=== PATIENT | male | born 1985 | race Caucasian/White ===

== ENCOUNTER → 2024-05-18 | Outpatient (CLI) | payer BC ==
[2024-05-18 19:23] LABS: Basophils # (A) 0.06 X 10*3/uL (0.00-0.10); Basophils % (A) 0.8 %; Eosinophils # (A) 0.28 X 10*3/uL (0.04-0.35); Eosinophils % (A) 3.9 %; HCT 44.6 % (39.6-50.0); HGB 15.5 g/dL (13.0-17.0); Lymphocytes # (A) 2.08 X 10*3/uL (0.90-5.00); Lymphocytes % (A) 29.2 %; MCH 31.2 pg (27.0-32.0); MCHC 34.8 g/dL (32.0-37.0); MCV 89.7 FL (80.0-97.0); Mean Platelet Volume 10.8 FL (9.5-12.2); Monocytes # (A) 0.42 X 10*3/uL (0.20-1.00); Monocytes % (A) 5.9 %; NRBC Per 100 WBC 0 X 10*3/uL (0.00-0.01); Neutrophils # (A) 4.24 X 10*3/uL (1.80-7.70); Neutrophils % (A) 59.6 %; Platelet Count 275 X 10*3/uL (140-440); RBC 4.97 X 10*6/uL (4.40-5.60); RDW 13.1 % (11.5-14.5); WBC 7.12 X 10*3/uL (4.50-10.00)
[2024-05-18 19:52] LABS: ALT 38 U/L (10-49); AST 29 U/L (14-35); Albumin 4.5 g/dL (3.8-4.9); Albumin/Globulin Ratio 1.41 Ratio (1.60-3.17); Alkaline Phosphatase 85 U/L (41-126); BUN/Creat Ratio 12.12 Ratio (12.00-20.00); Blood Urea Nitrogen 9.7 mg/dL (9.0-27.0); Calcium 9.4 mg/dL (8.7-10.3); Carbon Dioxide 22.9 mmol/L (21.6-31.8); Chloride 101 mmol/L (96-109); Chol/HDL Ratio 4.37 Ratio; Globulin 3.2 g/dL (1.6-3.3); Glucose 87 mg/dL (70-110); LDL Cholesterol,Calculated 117.9 mg/dL (0.0-131.0); Potassium 4.3 mmol/L (3.5-5.5); Sodium 137 mmol/L (135-145); Total Bilirubin 0.6 mg/dL (0.3-1.2); Total Protein 7.7 g/dL (6.2-8.2); Uric Acid 6.7 mg/dL (3.7-8.7)
== END | disposition home or self-care (01) ==
LOC: LABWHC1 15:20
PROVIDERS: ATTEND Internal Medicine
DX: Z00.00 Encounter for general adult medical examination without abnormal findings (principal); Z11.59 Encounter for screening for other viral diseases; M25.561 Pain in right knee
CPT/HCPCS: 36415; 80053; 80061; 84443; 84550; 85025; 86803

== ENCOUNTER → 2024-05-18 | Outpatient (CLI) | payer BC ==
--- NOTE | 2024-05-18 23:46 | XR ---
EXAMINATION TYPE: XR knee 4V RT DATE OF EXAM: 05/18/2024 4:06 PM COMPARISON: None. CLINICAL INDICATION: Male, 39 years old with history of M25.561, pain TECHNIQUE: 4 view(s) obtained. FINDINGS: Some patellofemoral joint space narrowing is not excluded. No significant joint effusion is evident. No acute fractures or dislocations. Follow up exams can be performed 7-10 days from acute trauma for continued pain. IMPRESSION: 1. There may be some patellofemoral joint space narrowing in otherwise unremarkable right knee [facility], , 05/18/2024 11:43 PM
== END | disposition home or self-care (01) ==
LOC: RADXRMAIN 15:43
PROVIDERS: ATTEND Internal Medicine
DX: M25.561 Pain in right knee (principal)

== ENCOUNTER → 2024-06-28 | Outpatient (CLI) | payer BC ==
[2024-06-28 15:18] VITALS: BP 172/82; PULSE 88; RESP 18; TEMP 98.5
--- NOTE | 2024-06-28 20:28 | P.SLEEP ---
History of Present Illness H&P Date: 06/28/24 Chief Complaint: Hypersomnia This is a pleasant 39-year-old morbidly obese male patient with a BMI of 58.9, referred to me due to concerns of obstructive sleep apnea. The patient reports loud snoring, apneas have been also noted by family members and the patient occasionally wakes up choking and gasping for air. This has become more frequent recently. He also has excessive daytime sleepiness and fatigue and he wakes up tired from sleep despite averaging around 6 hours of sleep every night. He goes to bed around 11 PM and wakes up 6 AM in the morning. On weekends, he goes to bed at around midnight and wakes up 7:00 in the morning. He can easily fall asleep during the day. He struggles to stay awake. He sleeps on his side. Unable to sleep on his back due to increased apneas. His weight has been fluctuating and currently his weight remains above 400 pounds. His sleep is fragmented and the patient wakes up at least 4 times the middle of the night for various reasons including urination. No sleep paralysis. No hallucinations. No cataplexy. The patient does not feel refreshed even if he takes up to 6 hours of sleep. No major comorbidities. No recent weight gain. No smoking. No alcoholism. No substance abuse. No head trauma. No cardiovascular disease. No atrial fibrillation. No stroke. No hypertension. His current Tatamy score is at 6. 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 Does not fall asleep while driving. No history of any motor vehicle accidents because of feeling drowsy or sleepy. He is a mouth breather. Review of Systems Constitutional: Reports daytime sleepiness, Reports fatigue, Reports weight gain Eyes: denies as per HPI, denies blurred vision, denies bulging eye, denies decreased vision, denies diplopia, denies discharge, denies dry eye, denies irritation, denies itching, denies pain, denies photophobia, denies loss of peripheral vision, denies loss of vision, denies tunnel vision/blind spots Ears: deny: decreased hearing, ear discharge, earache, tinnitus Ears, nose, mouth and throat: Reports as per HPI Breasts: absent: as per HPI, gynecomastia Respiratory: Reports as per HPI, Reports snoring Gastrointestinal: Reports as per HPI Genitourinary: Reports as per HPI Musculoskeletal: absent: ankle pain, ankle stiffness, ankle swelling, as per HPI, elbow pain, elbow stiffness, elbow swelling, foot pain, foot stiffness, foot swelling, hand pain, hand stiffness, hand swelling, hip pain, hip stiffness, hip swelling, knee pain, knee stiffness, knee swelling, shoulder pain, shoulder stiffness, shoulder swelling, wrist pain, wrist stiffness, wrist swelling Integumentary: Reports as per HPI Neurological: Reports as per HPI Psychiatric: Reports change in sleep habits, Reports hypersomnia, Reports sleep disturbances Endocrine: Reports as per HPI, Reports fatigue Hematologic/Lymphatic: Reports as per HPI Allergic/Immunologic: Reports as per HPI Past Medical History Additional Past Medical History / Comment(s): snoring, witnessed apnea wakes me up cause Im not breathing History of Any Multi-Drug Resistant Organisms: None Reported Past Surgical History: No Surgical Hx Reported Past Anesthesia/Blood Transfusion Reactions: No Reported Reaction Past Psychological History: No Psychological Hx Reported Smoking Status: Never smoker Past Alcohol Use History: Rare Past Drug Use History: None Reported - Past Family History Father Family Medical History: CVA/TIA, Diabetes Mellitus, Hypertension, Sleep Apnea/CPAP/BIPAP Additional Family Medical History / Comment(s): snoring Mother Family Medical History: Cancer Physical Exam Vitals: Vital Signs Temp Pulse Resp BP Pulse Ox 06/28/24 15:17 98.5 F 88 18 172/82 95 Intake and Output 06/28/24 06/28/24 06/28/24 06:59 14:59 22:59 Other: Weight 186.88 kg The patient appeared well nourished and normally developed. Vital signs as documented. The patient is morbidly obese with a BMI 58.3 Head exam is unremarkable. No scleral icterus or corneal arcus noted. Neck is without jugular venous distension, thyromegaly, or carotid bruits. Carotid upstrokes are brisk bilaterally. The patient has a Mallampati class IV with crowding the posterior pharynx Lungs are clear to auscultation and percussion. Cardiac exam reveals the PMI to be normally sized and situated. Rhythm is regular. First and second heart sounds normal. No murmurs, rubs or gallops. Abdominal exam reveals normal bowel sounds, no masses, no organomegaly and no aortic enlargement. Extremities are nonedematous and both femoral and pedal pulses are normal. Examination of the skin revealed no evidence of significant rashes, suspicious appearing nevi or other concerning lesions. Neurologically, the patient is awake and alert and the patient does not have any focal neurological deficit. Cranial nerves are essentially intact. Assessment and Plan Plan: Chronic hypersomnia, Tatamy score is at 6 Loud snoring Sleep fragmentation with frequent nocturnal arousals and apneas as reported by family members Morbid obesity BMI 54.9 Plan Very high clinical suspicion for obstructive sleep apnea Will undergo screening polysomnography to confirm diagnosis and treat accordingly Avoid driving especially when feeling drowsy or sleepy Extend the sleep hours to an average of 7 to 8 hours/day Maintain good sleep hygiene measures Maintain regular sleep schedule Weight loss Will continue to follow Time with Patient: Greater than 30 Sleep Note - Sleep Data ESS Total: 6 - Sleep Note Sleep Note: Temperature: 98.5 F Pulse Rate: 88 Respiratory Rate: 18 Blood Pressure: 172/82 SpO2: 95 Height: 5 ft 10.5 in Weight: 186.88 kg BMI: Neck Circumference: 20.5
== END ==
LOC: 3 N SLEEP 14:41
PROVIDERS: ATTEND Internal Medicine
DX: G47.33 Obstructive sleep apnea (adult) (pediatric) (principal); G47.10 Hypersomnia, unspecified; Z68.43 Body mass index [BMI] 50.0-59.9, adult
CPT/HCPCS: 99211

== ENCOUNTER 2024-08-26 19:46 | Outpatient (CLI) | payer BC ==
--- NOTE | 2024-08-29 20:21 | P.PCN ---
Date of Procedure: 08/26/24 Operative Findings: CPAP titration report History This is a pleasant 39-year-old morbidly obese male patient with a BMI of 58.9, referred to me due to concerns of obstructive sleep apnea. The patient reports loud snoring, apneas have been also noted by family members and the patient occasionally wakes up choking and gasping for air. This has become more frequent recently. He also has excessive daytime sleepiness and fatigue and he wakes up tired from sleep despite averaging around 6 hours of sleep every night. He goes to bed around 11 PM and wakes up 6 AM in the morning. On weekends, he goes to bed at around midnight and wakes up 7:00 in the morning. He can easily fall asleep during the day. He struggles to stay awake. He sleeps on his side. Unable to sleep on his back due to increased apneas. His weight has been fluctuating and currently his weight remains above 400 pounds. His sleep is fragmented and the patient wakes up at least 4 times the middle of the night for various reasons including urination. No sleep paralysis. No hallucinations. No cataplexy. The patient does not feel refreshed even if he takes up to 6 hours of sleep. No major comorbidities. No recent weight gain. No smoking. No alcoholism. No substance abuse. No head trauma. No cardiovascular disease. No atrial fibrillation. No stroke. No hypertension. His current Rainsville score is at 6. 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 Does not fall asleep while driving. No history of any motor vehicle accidents because of feeling drowsy or sleepy. He is a mouth breather. The patient underwent a home sleep study and the patient was diagnosed having severe obstructive sleep apnea with an AHI of 69.7. Based on that, the patient was asked to come into the sleep center to undergo CPAP titration. Pertinent physical findings Patient has a weight of 412 pounds and he has a body mass index of 58.4 Technical description The patient was studied using a standard complex polysomnography protocol that included recording of the Lead II EKG, Central, occipital and frontal EEG, right and left outer canthus EOG, submental EMG, right and left anterior tibialis EMG, respiratory airflow by thermocouple and or pressure/flow transducer, respiratory efforts by abdominal and thoracic PVDF belts, oxygen saturation by cable oximetry. Position by observation synchronized the PSG. Equipment used: [employer]. Stepwise CPAP titration was done to eliminate all obstructive respiratory events. Sleep architecture The total recording duration was 413.5 minutes. The total sleep time was 389.5 minutes. The overall sleep efficiency was 94.2%. The latency to sleep onset was 9.5 minutes. The latency to REM sleep was 82.5 minutes. The sleep architecture was characterized by 1.9% stage I, 56.1% stage II, 16.6% stage III and a total of 25.4% REM sleep. The patient's sleep latency was 9.5 minutes and the latency to REM sleep was 82.5 minutes. The total arousal index was 7.2. The wake after sleep onset time was 14 minutes. CPAP titration summary The patient was started on CPAP therapy, initially at the pressure of 5 cm of water pressure was gradually increased by increments of 1 cm to reach a maximum CPAP pressure of 13 cm of water. Carefully reviewed the CPAP titration taking on constipation sleep stage and body position. The patient was studied in REM and non-REM sleep and the patient was essentially in the nonsupine body position. Nevertheless, despite this limitation, the patient is successful CPAP titration and there was complete illumination of the obstructive respiratory events with a CPAP pressure of 13 cm of water. There was also improvement in oxygenation without any significant oxygen desaturations. Arousal events The patient had a total of 47 arousals with an arousal index of 7.2. Respiratory arousal index was 2.0 Periodic movement activity There was only 3 periodic limb movement movement activity with arousals with an index of 0.5 Cardiac summary The average heart rate was 74 with a minimum heart rate of 68 and a maximum heart of 80 Assessment evere symptomatic obstructive sleep apnea with an AHI of 69.7, worsening supine body position, and the patient underwent a successful CPAP titration Severe nocturnal oxygen desaturation recovered with CPAP therapy Chronic hypersomnia, Rainsville score is at 6 Loud snoring Sleep fragmentation with frequent nocturnal arousals and apneas as reported by family members Morbid obesity BMI 54.9 Plan The patient will be started on CPAP therapy at a pressure of 13 cm of water with a C-Flex of 3. The patient will be provided a small size AirFit N30 I nasal mask with a standard headgear. Avoid driving especially when feeling drowsy or sleepy Extend the sleep hours to an average of 7 to 8 hours/day Maintain good sleep hygiene measures Maintain regular sleep schedule Weight loss Will continue to follow and the patient was seen back in the office in 30 to 90 days to assess clinical response and compliancy.
== END 2024-08-27 05:25 | disposition home or self-care (01) ==
LOC: 3 N SLEEP 19:46
PROVIDERS: ATTEND Internal Medicine Critical Care Medicine
DX: G47.33 Obstructive sleep apnea (adult) (pediatric) (principal); E66.01 Morbid (severe) obesity due to excess calories; Z68.43 Body mass index [BMI] 50.0-59.9, adult; Z99.89 Dependence on other enabling machines and devices
CPT/HCPCS: 95811